=== PATIENT | female | born 1955 | race Caucasian/White ===

== ENCOUNTER 2018-03-04 20:49 | Emergency (ER) | payer OTHER ==
[2018-03-05] MEDS: HYDROCODONE/APAP (5/325) TAB PO (00:05)
== END 2018-03-05 01:17 | disposition home or self-care (01) ==
LOC: FTE 20:49
DX: M54.5 Low back pain (principal); I10 Essential (primary) hypertension; I25.2 Old myocardial infarction; F17.210 Nicotine dependence, cigarettes, uncomplicated; Z79.82 Long term (current) use of aspirin; Z98.61 Coronary angioplasty status
CPT/HCPCS: 99283; Z7610